=== PATIENT | female | born 1940 | race Caucasian/White ===

== ENCOUNTER 2016-10-05 06:54 | Emergency (ER) | payer OTHER ==
--- NOTE | 2016-10-05 08:09 | DIAGNOSTIC IMAGING REPORT ---
PROCEDURE: XR CHEST 1 VIEW INDICATION: SHORTNESS OF BREATH TECHNIQUE: Single view chest. 07:34 hours COMPARISON: None. FINDINGS: The heart is moderately enlarged. A dual lead pacemaker is present. Median sternotomy changes with sternal wire fractures are seen. Prior CABG. Central vessels are indistinct and enlarged. The interstitial markings are diffusely thickened. Bilateral perihilar alveolar opacities are present. More confluence towards the lung bases. Small bilateral pleural effusions, left greater than right. Intact osseous structures. IMPRESSION: 1. Findings most likely suggests CHF with alveolar edema. An underlying infectious process cannot be entirely excluded. 2. Prior CABG and pacemaker placement.
--- NOTE | 2016-10-05 10:17 | ED ORDER SUMMARY ---
..... Patient: JOEY MIRELES OrderSheet [facility] VisitID: [id number] [place] [address] 76y, F Registration Date/Time: 10/05/2016 ORDER SHEET Weight: 67 kg (measured) Allergies: Vicodin GENERAL ORDERS: Chest 1V Urgent (07:07 10/05/2016 John Paul CASTRO) (Ack 7:09 PWeilorenzo ER Tech1) (8:00 LAbe R.N.) Animal Breeder (Continuous) (07:07 10/05/2016 John Paul CASTRO) (7:26 LAbe R.N.) CBC w Diff Urgent (07:07 10/05/2016 John Paul CASTRO) (Ack 7:09 PWeilorenzo ER Tech1) (9:08 LAbe R.N.) CMP Urgent (07:07 10/05/2016 John Paul CASTRO) (Ack 7:09 Emir ER Tech1) (9:08 LAbe R.N.) UA-Culture if indicated Urgent (07:07 10/05/2016 John Paul CASTRO) (Ack 7:09 Emir Saah) (9:08 LAbe R.N.) PT with INR Urgent (07:07 10/05/2016 John Paul CASTRO) (Ack 7:09 Emir ER Tech1) (9:08 LAbe R.N.) PTT Urgent (07:07 10/05/2016 John Paul CASTRO) (Ack 7:09 Emir Lewis1) (9:08 LAbe R.N.) Amylase Urgent (07:07 10/05/2016 John Paul CASTRO) (Ack 7:09 Emir ZEPEDA Tech1) (9:08 LAbe R.N.) Lipase Urgent (07:07 10/05/2016 John Paul CASTRO) (Ack 7:09 Emir Saha) (9:08 LAbe R.N.) CPK Urgent (07:07 10/05/2016 John Paul CASTRO) (Ack 7:09 Emir ER Yifan) (9:08 LAbe R.N.) BNP Urgent (07:07 10/05/2016 John Paul CASTRO) (Ack 7:09 NIDHIeilorenzo ER Tech1) (9:08 LAbe R.N.) Oxygen (2 L/min) (NC) (07:07 10/05/2016 John Paul CASTRO) (7:26 LAbe R.N.) Pulse oximeter (07:07 10/05/2016 John Paul CASTRO) (7:26 LAbe R.N.) EKG - ER Stat (07:07 10/05/2016 John Paul CASTRO) (Ack 7:09 PWeiler ER Tech1) (7:16 PWeiler ER Tech1) ABG (G) Urgent (09:29 10/05/2016 PWeilorenzo ER Tech1 verbal order read back to John Paul CASTRO) (Ack 9:31 PWeiler ER Tech1) (10:24 PWeiler ER Tech1) MEDICATION ORDERS: Levophed Drip IV : 0.5-12 mcg/min (NOW); Stat (08:05 10/05/2016 Lamin Echols verbal order read back to John Paul CASTRO) (8:22 LAbe R.N.) Levophed Drip IV : 0.1-0.5 mcg/kg/min (HIGH ALERT MEDICATION, NOW); Urgent (08:07 10/05/2016 John Paul CASTRO) IV FLUIDS: Lasix IV 40 mg (NOW) (07:07 10/05/2016 John Paul CASTRO) (Ack 7:19 LAbe R.N.) (7:25 LAbe R.N.) IV Saline Lock (07:07 10/05/2016 John Paul CASTRO) (Ack 7:19 LAbe R.N.) (7:59 LAbe R.N.) Propofol Drip IV : initial bolus none, then 30 mg/kg/min (NOW, TITRATE); Damián (10:36 10/05/2016 Rubi Echols verbal order read back to John Paul CASTRO) (11:14 LAbe R.N.) Anectine IV 1 mg/kg (HIGH ALERT MEDICATION, NOW) (10:42 10/05/2016 Rubi Echols verbal order read back to John Paul CASTRO) (10:47 LAbe R.N.) Anectine IV 70 mg (HIGH ALERT MEDICATION, NOW) (10:43 10/05/2016 Rubi Echols verbal order read back to John Paul CASTRO) (10:45 Milton Maier.N.) Anectine IV 70 mg (HIGH ALERT MEDICATION, NOW) (10:43 10/05/2016 Rubi Echols verbal order read back to John Paul CASTRO) (Cancelled: Duplicate Order11:12 Milton Maier.NHubert) Etomidate IV 20 mg (HIGH ALERT MEDICATION, NOW) (10:44 10/05/2016 Rubi Echols verbal order read back to John Paul CASTRO) (10:50 Milton Maier.N.) Etomidate IV 3 mg (HIGH ALERT MEDICATION, NOW) (10:45 10/05/2016 Rubi Echols verbal order read back to John Paul CASTRO) (10:51 Milton Maier.N.) Vasopressin IV 0.3 units/kg (HIGH ALERT MEDICATION, NOW) (10:50 10/05/2016 Rubi Echols verbal order read back to John Paul CASTRO) (Cancelled: Wrong Order10:56 Rubi Maier.Avinash) Vasopressin IV 0.03 units/kg (HIGH ALERT MEDICATION, NOW) (10:57 10/05/2016 Rubi Echols verbal order read back to John Paul CASTRO) (11:11 Milton Maier.Avinash) ORDER SHEET NOTES: [Electronically signed by Miky Calle MD (11:11 10/05/2016)] [Electronically signed by Lisa Albert R.N. (11:35 10/05/2016)] [Electronically locked/signed by Lisa Albert R.N. (11:35 10/05/2016)]
--- NOTE | 2016-10-05 10:17 | ED NURSING NOTES ---
Clinical Report - Nurses [facility] [address] [place] [address] 10/05/2016 6:58 Patient: JOEY MIRELES TRIAGE Triage time 06:56. Acuity: LEVEL 2. Chief Complaint: SHORTNESS OF BREATH, DIFFICULTY BREATHING and WHEEZING. 07:12 10/05/16. Alert. No acute distress. SEPSIS SCREEN: Sepsis Screen. Negative (no infection suspected/documented). SHIRA COMA SCORE: [place] Coma Scale: 15- eyes open spontaneously (4); best verbal response- oriented x 4 (5); best motor response- obeys commands (6). --07:12 Christine Bedolla R.N. 07:01 10/05/16. BP: 99/67. HR: 89. RR: 19. O2 saturation: 95%. Temp: 97.9 F. Pain level now: 0/10. --07:12 Christine Bedolla R.N. 07:00. --10:54 Lisa Albert R.N. Weight: 67 kg measured. Height/Length: 62 inches Per Patient. BMI: 27. --07:00 Lisa Albert R.N. Medications Amiodarone HCL Oral. --07:02 Christine Bedolla R.N. Warfarin Sodium Oral. --07:02 Christine Bedolla R.N. Metoprolol Tartrate Oral. --07:02 Christine Bedolla R.N. Levothyroxine Sodium Oral. --07:03 Christine Bedolla R.N. Pantoprazole Sodium Oral. --07:03 Christine Bedolla R.N. ALPRAZolam Oral. --07:03 Christine Bedolla R.N. Simvastatin Oral. --07:03 Christine Bedolla R.N. Furosemide Oral. --07:03 Christine Bedolla R.N. Vitamin c Oral. --07:04 Christine Bedolla R.N. B-12 Oral. --07:04 Christine Bedolla R.N. Vitamin D Oral. --07:04 Christine Bedolla R.N. Ocuvite Oral. --07:04 Christine Bedolla R.N. Multivitamins Oral. --07:04 Christine Bedolla R.N. Glucosamine Oral. --07:05 Christine Bedolla R.N. Condroitin. --07:05 Christine Bedolla R.N. Iron Oral. --07:05 Christine Bedolla R.N. Allergies Vicodin. --07:07 Christine Bedolla R.N. History Arrived by EMS. Historian: patient. This started today. ( Patient states she had some shortness of breath last night, but woke up this morning "unable to breathe."). She has had a cough and wheezing. Treatment COUNTER TACKER: None. PAST MEDICAL HX: Congestive heart failure. Immunizations: up-to-date. Denies current . SOCIAL HX: Smoker- current status unknown. No alcohol use or drug use. FALL RISK ASSESSMENT: Fall risk assessment completed. No fall risk identified. NUTRITIONAL RISK ASSESSMENT: The nutritional risk assessment revealed no deficiencies. FUNCTIONAL ASSESSMENT: Functional assessment: no impairments noted. LEARNING NEEDS ASSESSMENT: The learning needs assessment revealed no barriers. SKIN INTEGRITY ASSESSMENT: Skin integrity risk assessment completed. No skin integrity risk identified. --07:12 Christine Bedolla R.N. Treatment COUNTER TACKER: ( duo neb and CPAP 7.5 for 10 mins en route). --07:14 Christine Bedolla R.N. SOCIAL HX: ( ALS at getting report from ). --09:53 Lisa Albert R.N. ADDITIONAL SURGERIES: Aortic valve replacement. Cholecystectomy. Knee repair. L kidney removal. Lumpectomy of breast. --07:09 Christine Bedolla R.N. Interventions ID band on patient. To treatment room. --07:12 Christine Bedolla R.N. NURSING PROGRESS NOTES 07:16 10/05/16. Care transferred and report given (to MORELIA Cai and MORELIA Gonzalez). --07:16 Crhistine Bedolla R.N. EKG time: (7:09). EKG was performed by keisha benitez and shown to the ED physician. --07:17 [facility] transferred and report received. --07:19 Lisa Albert R.N. 07:25 10/05/2016 Site #1 started via IV in the left antecubital space with an 20g angiocath (IV placed prior to this RNs arrival). --07:25 Lisa Albert R.N. 07:25 10/05/2016 Lasix IVP 40 mg given. via site #1. --07:25 Lisa Albert R.N. 07:47. ( RT at BS, placing patient on Bipap. O2 sats dropping to low 80% after patient is tiring.). --07:58 Lisa Albert R.N. 07:50 10/05/2016 Site #1 removed upon admission. Catheter intact. Pressure dressing applied (IV was dislodged with patient movement). --08:00 Lisa Albert R.N. 07:50 10/05/2016 Site #2 started via IV in the right wrist with an 20g angiocath, with aseptic technique and good blood return; one attempt. Saline lock flushed with 5 mL saline. --09:02 Lisa Albert R.N. 07:51 10/05/2016 Site #1 relocated to the left wrist with an 20g angiocath, with aseptic technique and good blood return; one attempt. Saline lock flushed with 5 mL saline. --08:01 Lisa Albert R.N. <<STRICKEN ENTRY-- 08:22 10/05/2016 Started 5 mcg of Levophed (Norepinephrine Bitartrate) Drip IV; at 5 mcg/min via site #1 --08:22 Lisa Albert R.N. --END STRIKE>> Correction. --08:25 Lisa Albert R.N. 08:22 10/05/2016 Started 0.5 mcg of Levophed (Norepinephrine Bitartrate) Drip IV; at 0.5 mcg/min via site #1 --08:25 Lisa Albert R.N. 08:23 10/05/2016 Started 1 mcg of Levophed (Norepinephrine Bitartrate) Drip IV; at 1 mcg/min via site #1 --08:23 Lisa Albert R.N. 14 fr cronin catheter placed. Reason for indwelling catheter: patient's decreased level of consciousness. During procedure hand hygiene observed and sterile equipment and aseptic technique used. Return of yellow-colored clear urine; attached to bedside drainage bag positioned below the bladder and secured with tape. She tolerated procedure well. --08:33 Lisa Albert R.N. 08:33 10/05/2016 Started 2 mcg of Levophed (Norepinephrine Bitartrate) Drip IV; at 2 mcg/min via site #1 via IV pump. IV patency established. IV site checked: no pain, redness, or swelling. IV flushed thoroughly pre- and post-medication administration. --08:47 Lisa Albert R.N. 08:39 10/05/2016 Started 3 mcg of Levophed (Norepinephrine Bitartrate) Drip IV; at 3 mcg/min via site #1 --08:44 Lisa Albert R.N. 08:40 10/05/2016 Started 5 mcg of Levophed (Norepinephrine Bitartrate) Drip IV; at 5 mcg/min via site #1 --08:45 Lisa Albert R.N. 08:45 10/05/2016 Started 7 mcg of Levophed (Norepinephrine Bitartrate) Drip IV; at 7 mcg/min via site #1 --08:45 Lisa Albert R.N. 08:22. ( Bagging by RT, preparing to place ET tube). --09:12 Lisa Albert R.N. 08:25. ( ET tube being placed, placement verified by bilateral breath sounds and colorometric device, continue BVM. ET 7.5 placed successfully, secred with velcro straps). --09:36 Lisa Albert R.N. 08:31. ( continue BVM, waiting placement on vent.). --09:37 Lisa Albert R.N. 08:40. ( continue BVM, awaiting Vent). --09:38 Lisa Albert R.N. 08:55. ( 2nd attempt at [facility] by RT, without success). --09:39 Lisa Albert R.N. 09:05. ( MD attempt [facility]). --09:40 Lisa Albert R.N. 07:51 10/05/2016 Site #3 started via IV in the left wrist with an 20g angiocath, with aseptic technique and good blood return; two attempts. Saline lock flushed with 5 mL saline. --11:10 Lisa Albert R.N. 08:22 10/05/2016 Etomidate IVP 20 mg given. via site #2. Allergies verified, confirmed 5 rights and sedative warning given to the patient's family. IV patency established. IV site checked: no pain, redness, or swelling. IV flushed thoroughly pre- and post-medication administration. IVP given by RN. --10:50 Lisa Albert R.N. 08:24 10/05/2016 Anectine IVP 70 mg given. via site #2. Allergies verified and confirmed 5 rights. IV patency established. IV site checked: no pain, redness, or swelling. IV flushed thoroughly pre- and post-medication administration. IVP given by RN. --10:47 Lisa Albert R.N. 08:38 10/05/2016 Anectine IVP 70 mg given. via site #2. Allergies verified and confirmed 5 rights. IV patency established. IV site checked: no pain, redness, or swelling. IV flushed thoroughly pre- and post-medication administration. IVP given by RN. --10:45 Lisa Albert R.N. 08:49 10/05/2016 Etomidate IVP 3 mg given. via site #2. Allergies verified, confirmed 5 rights and sedative warning given to the patient's family. IV patency established. IV site checked: no pain, redness, or swelling. IV flushed thoroughly pre- and post-medication administration. IVP given by RN. --10:51 Lisa Albert R.N. 08:52 10/05/2016 Anectine IVP 70 mg given. via site #2. Allergies verified and confirmed 5 rights. IV patency established. IV site checked: no pain, redness, or swelling. IV flushed thoroughly pre- and post-medication administration. IVP given by RN. --10:48 Lisa Albert R.N. 08:54 10/05/2016 Started 8 mcg of Levophed (Norepinephrine Bitartrate) Drip IV; at 8 mcg/min via site #1 --08:55 Lisa Albert R.N. 09:02 10/05/2016 Started 20 mg of Propofol Drip IV; at 30 mcg/kg/min via site #3 via IV pump. Allergies verified and confirmed 5 rights. IV patency established. IV site checked: no pain, redness, or swelling. IV flushed thoroughly pre- and post-medication administration. --11:14 Lisa Albert R.N. 09:06 10/05/2016 Started 10 mcg of Levophed (Norepinephrine Bitartrate) Drip IV; at 10 mcg/min via site #1 --09:06 Lisa Albert R.N. <<STRICKEN ENTRY-- 09:26 10/05/2016 Vasopressin IVP 0.03 unit given over 1 minute(s) via site #3. Allergies verified and confirmed 5 rights. IV patency established. IV site checked: no pain, redness, or swelling. IV flushed thoroughly pre- and post-medication administration. IVP given by RN. --11:11 Lisa Albert R.N. --END STRIKE>> Change to Details. --11:30 Lisa Albert R.N. <<STRICKEN ENTRY-- 09:46 10/05/2016 Started 20 mg of Propofol Drip IV; at 20 mcg/kg/min via site #3 via IV pump. Allergies verified and confirmed 5 rights. IV patency established. IV site checked: no pain, redness, or swelling. IV flushed thoroughly pre- and post-medication administration. --11:16 Lisa Albert R.N. --END STRIKE>> Change to Details. --11:28 Lisa Albert R.N. 10:00 10/05/16. BP: 91/41. HR: 71. RR: 25. O2 saturation: 100% on ventilator at 7 liters/minute. 10:00 10/05/16. BP: 91/41. HR: 71. RR: 25. O2 saturation: 100%. 09:45 10/05/16. BP: 83/36. HR: 64. RR: 26. O2 saturation: 98%. 09:30 10/05/16. BP: 90/43. HR: 60. RR: 27. 09:15 10/05/16. BP: 67/51. HR: 60. RR: 30. O2 saturation: 95%. 09:00 10/05/16. BP: 93/51. HR: 61. RR: 18. O2 saturation: 96%. 08:45 10/05/16. BP: 87/51. HR: 76. RR: 16. O2 saturation: 100%. 08:30 10/05/16. BP: 75/48. HR: 82. RR: 13. O2 saturation: 98%. 08:15 10/05/16. BP: 86/67. HR: 83. RR: 28. O2 saturation: 100%. 08:00 10/05/16. BP: 82/64. HR: 80. RR: 28. O2 saturation: 100%. 07:30 10/05/16. BP: 147/112. HR: 98. RR: 33. O2 saturation: 86%. 07:01 10/05/16. BP: 99/67. HR: 89. RR: 19. O2 saturation: 95%. Temp: 97.9 F. Pain level now: 0/10. --11:25 Lisa Albert R.N. 09:26 10/05/2016 Vasopressin IVP 0.03 unit given over 1 minute(s) via site #3. Allergies verified and confirmed 5 rights. IV patency established. IV site checked: no pain, redness, or swelling. IV flushed thoroughly pre- and post-medication administration. IVP given by RN (Infusion continued while transferred with flight crew to [place]). --11:30 Lisa Albert R.N. 09:46 10/05/2016 Started 20 mg of Propofol Drip IV; at 20 mcg/kg/min via site #3 via IV pump. Allergies verified and confirmed 5 rights. IV patency established. IV site checked: no pain, redness, or swelling. IV flushed thoroughly pre- and post-medication administration ([employer] disconinued gtt but took medication with them in case of need during flight to [place].). --11:28 Lisa Albert R.N. 10:11 10/05/2016 Levophed Drip IV Continued: at the rate of 10 mcg/min. IV patency established. IV site checked: no pain, redness, or swelling. IV flushed thoroughly. --11:33 Lias Albert R.N. DISPOSITION / DISCHARGE 10:11 10/05/2016 Site #[address] upon transfer; patent, no pain and no signs of infection or infiltration. No blood return present. --10:32 Lisa Albert R.N. 10:11 10/05/2016 Site #[address] upon transfer; patent, no pain and no signs of infection or infiltration. --10:32 Lisa Albert R.N. 10:00 10/05/16. BP: 91/41. HR: 71. RR: 25. O2 saturation: 100% on ventilator at 7 liters/minute. --10:39 Lisa Albert R.N. 10:11. --11:34 Lisa Albert R.N. 11:33 10/05/16. Pain level now 0/10. --11:34 Lisa Albert R.N. 11:34 10/05/16. Pain level now 0/10. --11:34 Lisa Albert R.N. <<STRICKEN ENTRY-- 10:11. --11:34 Lisa Albert R.N. --END STRIKE>> Correction --11:35 Lisa Albert R.N. 10:15. Departure time: 1011. Condition at departure: stable and critical. Transferred to [facility]. Summary of care provided to transport team and transfer facility (1). Transported via helicopter by nurse and transport team with monitor, defibrillator, IV, O2, emergency medications and ambu bag. Report was given to a nurse via a phone call. Report included patient's care, treatment, medications, reviewed medication reconcilliation, and condition (including any recent changes or anticipated changes). All questions were answered. Care was transferred. ( Telephone report given to Yesenia THIBODEAUX at [facility] for ICU bed 303, [address] on transfer). --10:39 Lisa Albert R.N. Locked/Released at 10/05/2016 11:35 by Lisa Albert R.N.
--- NOTE | 2016-10-05 10:17 | ED CLINICAL REPORT ---
Clinical Report - Physicians/Mid Levels [facility] [address] [place] [address] 10/05/2016 6:58 Patient: JOEY MIRELES Time Seen: 06:56. Arrived- By ambulance. Historian- patient and EMS personnel. HISTORY OF PRESENT ILLNESS Chief Complaint: DYSPNEA. This started today and is still present. It was abrupt in onset and has been constant. The dyspnea is severe. The patient has had a cough, dyspnea on exertion, orthopnea and anxiety. No sputum production, fever, sweating episodes, wheezing or chills. No chest pain or discomfort or calf pain. The patient has had mild right and left foot swelling (chronically). Similar symptoms previously: Several times. Diagnosis: (CHF). Recent medical care: The patient was seen recently by a health care provider. Seen for similar symptoms. Evaluation/treatment: treatment unknown. Diagnosis: (she was treated for congestive heart failure at [facility]). REVIEW OF SYSTEMS Unobtainable. No chills, fever, sweats, calf pain or palpitations. No abdominal pain, constipation, diarrhea, nausea or vomiting. No urinary problems. She has had mild pedal edema involving the right and left leg (chronically). PAST HISTORY breast cancer - status post lumpectomy, radiation and chemotherapy atrial fibrillation - status post prior ablation without success and subsequent pacemaker placement congestive heart failure renal cancer - status post left nephrectomy. Additional Surgeries: Aortic valve replacement. Cholecystectomy. Knee repair. L kidney removal. Lumpectomy of breast. Medications: Iron Oral. Condroitin. Glucosamine Oral. Multivitamins Oral. Ocuvite Oral. Vitamin D Oral. B-12 Oral. Vitamin c Oral. Furosemide Oral. Simvastatin Oral. ALPRAZolam Oral. Pantoprazole Sodium Oral. Levothyroxine Sodium Oral. Metoprolol Tartrate Oral. Warfarin Sodium Oral. Amiodarone HCL Oral. Allergies: Vicodin. SOCIAL HISTORY Former smoker. No alcohol use or drug use. Residence: [place]. FAMILY HISTORY Unable to obtain family medical history due to patient's distress. ADDITIONAL NOTES The nursing notes have been reviewed. PHYSICAL EXAM Vital Signs: Have been reviewed. Appearance: Alert. Patient in moderate distress. Eyes: Pupils equal, round and reactive to light. ENT: Pharynx normal. Neck: Normal inspection. No jugular venous distention. CVS: Normal heart rate and rhythm. 1/6 systolic murmur. Extra heart sounds: artificial valve sound. Respiratory: Respiratory distress. Fatigue. Accessory muscle use. Prolonged expirations. Decreased air movement. Rales present. Abdomen: Soft and nontender. No organomegaly. Back: Normal inspection. Skin: Skin warm and dry. Normal skin color. Normal skin turgor. Extremities: Bilateral 1+ non-pitting edema of the lower extremities. Extremities exhibit normal ROM. No calf tenderness. LABS, X-RAYS, AND EKG Chest X-ray: (IMPRESSION: 1. Findings most likely suggests CHF with alveolar edema. An underlying infectious process cannot be entirely excluded. 2. Prior CABG and pacemaker placement.). The X-rays were interpreted by the radiologist and contemporaneously by me. Laboratory Tests: UA-Culture if indicated: (LIZ: 10/05/2016 08:00) ( [facility] [place] 10/05/2016 09:12) Final results Test Result Flag Units (Reference) URINE COLOR YELLOW URINE APPEARANCE CLEAR URINE GLUCOSE NEGATIVE (NEGATIVE) URINE BILIRUBIN NEGATIVE (NEGATIVE) URINE KETONE NEGATIVE (NEGATIVE) URINE SPECIFIC GRAVITY 1.020 (1.010-1.030) URINE PH 6.0 (5.0-8.0) URINE PROTEIN 1+ (NEGATIVE) URINE UROBILINOGEN 0.2 EU/dL (0.2-1.0) URINE NITRITE NEGATIVE (NEGATIVE) URINE BLOOD NEGATIVE (NEGATIVE) URINE LEUK ESTERASE NEGATIVE (NEGATIVE) URINE RBC RARE rbc/hpf (0-1) URINE WBC RARE wbc/hpf (0-1) URINE EPITHELIAL CELLS RARE EPI/hpf (0-5) URINE BACTERIA NONE SEEN (NONE SEEN) URINE COMMENT CULT NOT INDICATED 3+ AMORPHOUS CRYSTALS 5-10 HYALINE CASTS/LPFURINE CULTURES ARE SET-UP BASED ON THE FOLLOWING CRITERIA:POSITIVE NITRITEPOSITIVE LEUKOCYTE ESTERASEGREATER THAN 10 WHITE BLOOD CELLSMODERATE (2+) OR GREATER BACTERIA CBC w Diff: (LIZ: 10/05/2016 07:00) ( [facility] [place] 10/05/2016 08:10) Final results Test Result Flag Units (Reference) WHITE BLOOD COUNT 10.7 K/uL (4.5-11.5) RED BLOOD COUNT 3.71 L M/uL (4.00-5.20) HEMOGLOBIN 11.5 L gm/dL (12.0-16.0) HEMATOCRIT 34.5 L % (36.0-46.0) MEAN CELL VOLUME 93 fL (80-100) MEAN CORPUSCULAR HGB 31 pg (26-34) MEAN CORPUSCULAR HGB CONC 33 g/dL (31-37) RED CELL DISTRIBUTION WIDTH 17.8 H % (11.6-14.8) PLATELET COUNT 272 K/uL (150-400) NEUTROPHIL % 79.9 H % (50-75) LYMPH % 11.3 L % (25-40) MONO % 7.4 % (3-14) EOSINOPHIL % 0.9 % (0-4) BASOPHIL % 0.5 % (0-2) PT with INR: (LIZ: 10/05/2016 07:00) ( [facility] 10/05/2016 08:13) Final results Test Result Flag Units (Reference) INR 2.6 H (0.8-1.2) Low Intensity Therapy: INR 1.5-2.0 PT range 18.5-23.1Mod.Intensity Therapy: INR 2.0-3.0 PT range 23.1-31.5High Intensity Therapy: INR 2.5-3.5 PT range 27.4-35.5High Intensity Therapy 2: INR 3.0-4.0 PT range 31.5-39.3 APTT 37 H SECONDS (24-34) BNP: (LIZ: 10/05/2016 07:00) ( [facility] 10/05/2016 08:27) Final results Test Result Flag Units (Reference) B-TYPE NATRIURETIC PEPTIDE 927 H pg/ml (5-100) CMP: (LIZ: 10/05/2016 07:00) ( [facility] 10/05/2016 08:16) Final results Test Result Flag Units (Reference) GLUCOSE 104 mg/dL (70-110) BUN 33 H mg/dL (7-18) CREATININE 1.5 H mg/dL (0.6-1.3) Estimated GFR 35.98 mL/min Estimated GFR- 43.61 mL/min Note: Persistent reduction over 3 months in eGFR<60 mL/min/1.73 m2 defines CKD. Patients with eGFR values>=60 mL/min/1.73 m2 may also have CKD if evidence ofpersistent proteinuria. Additional information may be foundat www.kidney.org. SODIUM 147 H mmol/L (136-145) POTASSIUM 4.3 mmol/L (3.5-5.1) CHLORIDE 112 H mmol/L (98-107) CARBON DIOXIDE 28 mmol/L (21-32) CALCIUM 8.9 mg/dL (8.5-10.1) TOTAL PROTEIN 7.2 g/dL (6.4-8.2) ALBUMIN 3.7 g/dL (3.3-5.0) BILIRUBIN, TOTAL 0.9 mg/dL (0.0-1.0) ALKALINE PHOSPHATASE 103 U/L (46-116) AST (SGOT) 84 H U/L (15-37) ALT (SGPT) 66 U/L (12-78) LIPASE 180 U/L (73-393) AMYLASE 73 U/L (25-115) CPK 52 U/L (24-260) ABG: (LIZ: 10/05/2016 09:29) ( [facility] 10/05/2016 09:43) IP Test Result Flag Units (Reference) ARTERIAL BLOOD GAS pH 7.23 *L (7.35-7.45) ABG PCO2 43.3 mmHg (35-45) ABG PO2 82.2 H mmHg (60.0-80.0) ABG BASE EXCESS -8.7 *L mmol/L (-6.0--6.0) ABG HCO3 18.2 L mmol/L (20.0-26.0) ABG TCO2 19.5 L mmol/L (24.0-30.0) ABG [id number] 581.0 H mmHg (7.0-14.0) *NOTE: Normal rangeis based on aFIO2 of 21% ABG SAT O2 92.0 L % (95.1-100.0) ABG TOTAL HEMOGLOBIN 12.8 g/dL (12.0-16.0) ABG O2 HEMOGLOBIN 90.7 L % (95.0-100.0) ABG CARBOXYHEMOGLOBIN 1.0 % (0.5-1.5) ABG METHEMOGLOBIN 0.4 % (0.4-1.5) ABG RHEMOGLOBIN 7.9 % . PROGRESS AND PROCEDURES Intubation: Time-out completed immediately before the procedure. Intubated with 7.5 cuffed endotracheal tube. Head placed in neutral position. Preoxygenated. Hyperventilated. Suction was available. Intubated via orotracheal route. Administered induction agent- etomidate and neuromuscular blocking agent- succinylcholine. No complications. Placement confirmed by direct visualization and equal rise and fall of chest wall. Tube secured with device and connected to ventilator. Given propofol post-intubation. Tube marked at teeth (20 cm). Technique: video assisted. Procedure successful; one attempt. Critical care performed (130 minutes). Time includes: direct patient care, patient reassessment, coordination of patient care, interpretation of data (laboratory data, pulse oximetry and arterial blood gases), review of patient's medical records, medical consultation, family consultation regarding treatment decisions and documentation of patient care. Procedures included in critical care time: ventilator management. Procedures excluded from critical care time: intubation. Consult obtained from optic fibre drawer. Dr Cordoba at [facility]. Case discussed. Phone consult only. Will see patient in the hospital. Patient/family counseled. Old medical records ordered. Old records unavailable. Disposition: Benefits, risks and alternatives to transfer explained to family. Transferred to [facility]. CLINICAL IMPRESSION Acute respiratory failure with hypoxemia and hypercapnia. Congestive heart failure. Hypotension. Renal insufficiency. (Electronically signed by Miky Calle MD 10/05/2016 11:11)
--- NOTE | 2016-10-05 10:17 | ED NURSING NOTES ---
Clinical Report - Nurses [facility] [address] [place] [address] 10/05/2016 6:58 Patient: JOEY MIRELES TRIAGE Triage time 06:56. Acuity: LEVEL 2. Chief Complaint: SHORTNESS OF BREATH, DIFFICULTY BREATHING and WHEEZING. 07:12 10/05/16. Alert. No acute distress. SEPSIS SCREEN: Sepsis Screen. Negative (no infection suspected/documented). SHIRA COMA SCORE: [place] Coma Scale: 15- eyes open spontaneously (4); best verbal response- oriented x 4 (5); best motor response- obeys commands (6). --07:12 Christine Bedolla R.N. 07:01 10/05/16. BP: 99/67. HR: 89. RR: 19. O2 saturation: 95%. Temp: 97.9 F. Pain level now: 0/10. --07:12 Christine Bedolla R.N. 07:00. --10:54 Lisa Albert R.N. Weight: 67 kg measured. Height/Length: 62 inches Per Patient. BMI: 27. --07:00 Lisa Albert R.N. Medications Amiodarone HCL Oral. --07:02 Christine Bedolla R.N. Warfarin Sodium Oral. --07:02 Christine Bedolla R.N. Metoprolol Tartrate Oral. --07:02 Christine Bedolla R.N. Levothyroxine Sodium Oral. --07:03 Christine Bedolla R.N. Pantoprazole Sodium Oral. --07:03 Christine Bedolla R.N. ALPRAZolam Oral. --07:03 Christine Bedolla R.N. Simvastatin Oral. --07:03 Christine Bedolla R.N. Furosemide Oral. --07:03 Christine Bedolla R.N. Vitamin c Oral. --07:04 Christine Bedolla R.N. B-12 Oral. --07:04 Christine Bedolla R.N. Vitamin D Oral. --07:04 Christine Bedolla R.N. Ocuvite Oral. --07:04 Christine Bedolla R.N. Multivitamins Oral. --07:04 Christine Bedolla R.N. Glucosamine Oral. --07:05 Christine Bedolla R.N. Condroitin. --07:05 Christine Bedolla R.N. Iron Oral. --07:05 Christine Bedolla R.N. Allergies Vicodin. --07:07 Christine Bedolla R.N. History Arrived by EMS. Historian: patient. This started today. ( Patient states she had some shortness of breath last night, but woke up this morning "unable to breathe."). She has had a cough and wheezing. Treatment REAL ESTATE SERVICES COORDINATOR: None. PAST MEDICAL HX: Congestive heart failure. Immunizations: up-to-date. Denies current . SOCIAL HX: Smoker- current status unknown. No alcohol use or drug use. FALL RISK ASSESSMENT: Fall risk assessment completed. No fall risk identified. NUTRITIONAL RISK ASSESSMENT: The nutritional risk assessment revealed no deficiencies. FUNCTIONAL ASSESSMENT: Functional assessment: no impairments noted. LEARNING NEEDS ASSESSMENT: The learning needs assessment revealed no barriers. SKIN INTEGRITY ASSESSMENT: Skin integrity risk assessment completed. No skin integrity risk identified. --07:12 Christine Bedolla R.N. Treatment REAL ESTATE SERVICES COORDINATOR: ( duo neb and CPAP 7.5 for 10 mins en route). --07:14 Christine Bedolla R.N. SOCIAL HX: ( ALS at getting report from ). --09:53 Lisa Albert R.N. ADDITIONAL SURGERIES: Aortic valve replacement. Cholecystectomy. Knee repair. L kidney removal. Lumpectomy of breast. --07:09 Christine Bedolla R.N. Interventions ID band on patient. To treatment room. --07:12 Christine Bedolla R.N. NURSING PROGRESS NOTES 07:16 10/05/16. Care transferred and report given (to MORELIA Cai and MORELIA Gonzalez). --07:16 Christine Bedolla R.N. EKG time: (7:09). EKG was performed by keisha benitez and shown to the ED physician. --07:[address] [facility] transferred and report received. --07:19 Lisa Albert R.N. 07:25 10/05/2016 Site #1 started via IV in the left antecubital space with an 20g angiocath (IV placed prior to this RNs arrival). --07:25 Lisa Albert R.N. 07:25 10/05/2016 Lasix IVP 40 mg given. via site #1. --07:25 Lisa Albert R.N. 07:47. ( RT at BS, placing patient on Bipap. O2 sats dropping to low 80% after patient is tiring.). --07:58 Lisa Albert R.N. 07:50 10/05/2016 Site #1 removed upon admission. Catheter intact. Pressure dressing applied (IV was dislodged with patient movement). --08:00 Lisa Albert R.N. 07:50 10/05/2016 Site #2 started via IV in the right wrist with an 20g angiocath, with aseptic technique and good blood return; one attempt. Saline lock flushed with 5 mL saline. --09:02 Lisa Albert R.N. 07:51 10/05/2016 Site #1 relocated to the left wrist with an 20g angiocath, with aseptic technique and good blood return; one attempt. Saline lock flushed with 5 mL saline. --08:01 Lisa Albert R.N. <<STRICKEN ENTRY-- 08:22 10/05/2016 Started 5 mcg of Levophed (Norepinephrine Bitartrate) Drip IV; at 5 mcg/min via site #1 --08:22 Lisa Albert R.N. --END STRIKE>> Correction. --08:25 Lisa Albert R.N. 08:22 10/05/2016 Started 0.5 mcg of Levophed (Norepinephrine Bitartrate) Drip IV; at 0.5 mcg/min via site #1 --08:25 Lisa Albert R.N. 08:23 10/05/2016 Started 1 mcg of Levophed (Norepinephrine Bitartrate) Drip IV; at 1 mcg/min via site #1 --08:23 Lisa Albert R.N. 14 fr cronin catheter placed. Reason for indwelling catheter: patient's decreased level of consciousness. During procedure hand hygiene observed and sterile equipment and aseptic technique used. Return of yellow-colored clear urine; attached to bedside drainage bag positioned below the bladder and secured with tape. She tolerated procedure well. --08:33 Lisa Albert R.N. 08:33 10/05/2016 Started 2 mcg of Levophed (Norepinephrine Bitartrate) Drip IV; at 2 mcg/min via site #1 via IV pump. IV patency established. IV site checked: no pain, redness, or swelling. IV flushed thoroughly pre- and post-medication administration. --08:47 Lisa Albert R.N. 08:39 10/05/2016 Started 3 mcg of Levophed (Norepinephrine Bitartrate) Drip IV; at 3 mcg/min via site #1 --08:44 Lisa Albert R.N. 08:40 10/05/2016 Started 5 mcg of Levophed (Norepinephrine Bitartrate) Drip IV; at 5 mcg/min via site #1 --08:45 Lisa Albert R.N. 08:45 10/05/2016 Started 7 mcg of Levophed (Norepinephrine Bitartrate) Drip IV; at 7 mcg/min via site #1 --08:45 Lisa Albert R.N. 08:22. ( Bagging by RT, preparing to place ET tube). --09:12 Lisa Albert R.N. 08:25. ( ET tube being placed, placement verified by bilateral breath sounds and colorometric device, continue BVM. ET 7.5 placed successfully, secred with velcro straps). --09:36 Lisa Albert R.N. 08:31. ( continue BVM, waiting placement on vent.). --09:37 Lisa Albert R.N. 08:40. ( continue BVM, awaiting Vent). --09:38 Lisa Albert R.N. 08:55. ( 2nd attempt at [facility] by RT, without success). --09:39 Lisa Albert R.N. 09:05. ( MD attempt [facility]). --09:40 Lisa Albert R.N. 07:51 10/05/2016 Site #3 started via IV in the left wrist with an 20g angiocath, with aseptic technique and good blood return; two attempts. Saline lock flushed with 5 mL saline. --11:10 iLsa Albert R.N. 08:22 10/05/2016 Etomidate IVP 20 mg given. via site #2. Allergies verified, confirmed 5 rights and sedative warning given to the patient's family. IV patency established. IV site checked: no pain, redness, or swelling. IV flushed thoroughly pre- and post-medication administration. IVP given by RN. --10:50 Lisa Albert R.N. 08:24 10/05/2016 Anectine IVP 70 mg given. via site #2. Allergies verified and confirmed 5 rights. IV patency established. IV site checked: no pain, redness, or swelling. IV flushed thoroughly pre- and post-medication administration. IVP given by RN. --10:47 Lisa Albert R.N. 08:38 10/05/2016 Anectine IVP 70 mg given. via site #2. Allergies verified and confirmed 5 rights. IV patency established. IV site checked: no pain, redness, or swelling. IV flushed thoroughly pre- and post-medication administration. IVP given by RN. --10:45 Lisa Albert R.N. 08:49 10/05/2016 Etomidate IVP 3 mg given. via site #2. Allergies verified, confirmed 5 rights and sedative warning given to the patient's family. IV patency established. IV site checked: no pain, redness, or swelling. IV flushed thoroughly pre- and post-medication administration. IVP given by RN. --10:51 Lisa Albert R.N. 08:52 10/05/2016 Anectine IVP 70 mg given. via site #2. Allergies verified and confirmed 5 rights. IV patency established. IV site checked: no pain, redness, or swelling. IV flushed thoroughly pre- and post-medication administration. IVP given by RN. --10:48 Lisa Albert R.N. 08:54 10/05/2016 Started 8 mcg of Levophed (Norepinephrine Bitartrate) Drip IV; at 8 mcg/min via site #1 --08:55 Lisa Albert R.N. 09:02 10/05/2016 Started 20 mg of Propofol Drip IV; at 30 mcg/kg/min via site #3 via IV pump. Allergies verified and confirmed 5 rights. IV patency established. IV site checked: no pain, redness, or swelling. IV flushed thoroughly pre- and post-medication administration. --11:14 Lisa Albert R.N. 09:06 10/05/2016 Started 10 mcg of Levophed (Norepinephrine Bitartrate) Drip IV; at 10 mcg/min via site #1 --09:06 Lisa Albert R.N. <<STRICKEN ENTRY-- 09:26 10/05/2016 Vasopressin IVP 0.03 unit given over 1 minute(s) via site #3. Allergies verified and confirmed 5 rights. IV patency established. IV site checked: no pain, redness, or swelling. IV flushed thoroughly pre- and post-medication administration. IVP given by RN. --11:11 Lisa Albert R.N. --END STRIKE>> Change to Details. --11:30 Lisa Albert R.N. <<STRICKEN ENTRY-- 09:46 10/05/2016 Started 20 mg of Propofol Drip IV; at 20 mcg/kg/min via site #3 via IV pump. Allergies verified and confirmed 5 rights. IV patency established. IV site checked: no pain, redness, or swelling. IV flushed thoroughly pre- and post-medication administration. --11:16 Lisa Albert R.N. --END STRIKE>> Change to Details. --11:28 Lisa Albert R.N. 10:00 10/05/16. BP: 91/41. HR: 71. RR: 25. O2 saturation: 100% on ventilator at 7 liters/minute. 10:00 10/05/16. BP: 91/41. HR: 71. RR: 25. O2 saturation: 100%. 09:45 10/05/16. BP: 83/36. HR: 64. RR: 26. O2 saturation: 98%. 09:30 10/05/16. BP: 90/43. HR: 60. RR: 27. 09:15 10/05/16. BP: 67/51. HR: 60. RR: 30. O2 saturation: 95%. 09:00 10/05/16. BP: 93/51. HR: 61. RR: 18. O2 saturation: 96%. 08:45 10/05/16. BP: 87/51. HR: 76. RR: 16. O2 saturation: 100%. 08:30 10/05/16. BP: 75/48. HR: 82. RR: 13. O2 saturation: 98%. 08:15 10/05/16. BP: 86/67. HR: 83. RR: 28. O2 saturation: 100%. 08:00 10/05/16. BP: 82/64. HR: 80. RR: 28. O2 saturation: 100%. 07:30 10/05/16. BP: 147/112. HR: 98. RR: 33. O2 saturation: 86%. 07:01 10/05/16. BP: 99/67. HR: 89. RR: 19. O2 saturation: 95%. Temp: 97.9 F. Pain level now: 0/10. --11:25 Lisa Albert R.N. 09:26 10/05/2016 Vasopressin IVP 0.03 unit given over 1 minute(s) via site #3. Allergies verified and confirmed 5 rights. IV patency established. IV site checked: no pain, redness, or swelling. IV flushed thoroughly pre- and post-medication administration. IVP given by RN (Infusion continued while transferred with flight crew to [place]). --11:30 Lisa Albert R.N. 09:46 10/05/2016 Started 20 mg of Propofol Drip IV; at 20 mcg/kg/min via site #3 via IV pump. Allergies verified and confirmed 5 rights. IV patency established. IV site checked: no pain, redness, or swelling. IV flushed thoroughly pre- and post-medication administration ([employer] disconinued gtt but took medication with them in case of need during flight to [place].). --11:28 Lisa Albert R.N. 10:11 10/05/2016 Levophed Drip IV Continued: at the rate of 10 mcg/min. IV patency established. IV site checked: no pain, redness, or swelling. IV flushed thoroughly. --11:33 Lisa Albert R.N. DISPOSITION / DISCHARGE 10:11 10/05/2016 Site #[address] upon transfer; patent, no pain and no signs of infection or infiltration. No blood return present. --10:32 Lisa Albert R.N. 10:11 10/05/2016 Site #[address] upon transfer; patent, no pain and no signs of infection or infiltration. --10:32 Lisa Albert R.N. 10:00 10/05/16. BP: 91/41. HR: 71. RR: 25. O2 saturation: 100% on ventilator at 7 liters/minute. --10:39 Lisa Albert R.N. 10:11. --11:34 Lisa Albert R.N. 11:33 10/05/16. Pain level now 0/10. --11:34 Lisa Albert R.N. 11:34 10/05/16. Pain level now 0/10. --11:34 Lisa Albert R.N. <<STRICKEN ENTRY-- 10:11. --11:34 Lisa Albert R.N. --END STRIKE>> Correction --11:35 Lisa Albert R.N. 10:15. Departure time: 1011. Condition at departure: stable and critical. Transferred to [facility]. Summary of care provided to transport team and transfer facility (1). Transported via helicopter by nurse and transport team with monitor, defibrillator, IV, O2, emergency medications and ambu bag. Report was given to a nurse via a phone call. Report included patient's care, treatment, medications, reviewed medication reconcilliation, and condition (including any recent changes or anticipated changes). All questions were answered. Care was transferred. ( Telephone report given to Yesenia THIBODEAUX at [facility] for ICU bed 303, [address] on transfer). --10:39 Lisa Albert R.N. Locked/Released at 10/05/2016 11:35 by Lisa Albert R.N.
--- NOTE | 2016-10-05 10:17 | ED ORDER SUMMARY ---
..... Patient: JOEY MIRELES OrderSheet [facility] VisitID: [id number] [place] [address] 76y, F Registration Date/Time: 10/05/2016 ORDER SHEET Weight: 67 kg (measured) Allergies: Vicodin GENERAL ORDERS: Chest 1V Urgent (07:07 10/05/2016 John Paul CASTRO) (Ack 7:09 PWeilorenzo ER Tech1) (8:00 LAbe R.N.) Forming Process Worker (Continuous) (07:07 10/05/2016 John Paul CASTRO) (7:26 LAbe R.N.) CBC w Diff Urgent (07:07 10/05/2016 John Paul CASTRO) (Ack 7:09 PWeilorenzo ER Tech1) (9:08 LAbe R.N.) CMP Urgent (07:07 10/05/2016 John Paul CASTRO) (Ack 7:09 Emir ER Tech1) (9:08 LAbe R.N.) UA-Culture if indicated Urgent (07:07 10/05/2016 John Paul CASTRO) (Ack 7:09 Emir Saha) (9:08 LAbe R.N.) PT with INR Urgent (07:07 10/05/2016 John Paul CASTRO) (Ack 7:09 Emir ER Tech1) (9:08 LAbe R.N.) PTT Urgent (07:07 10/05/2016 John Paul CASTRO) (Ack 7:09 Emir Lewis1) (9:08 LAbe R.N.) Amylase Urgent (07:07 10/05/2016 John Paul CASTRO) (Ack 7:09 Emir ZEPEDA Tech1) (9:08 LAbe R.N.) Lipase Urgent (07:07 10/05/2016 John Paul CASTRO) (Ack 7:09 Emir Saha) (9:08 LAbe R.N.) CPK Urgent (07:07 10/05/2016 John Paul CASTRO) (Ack 7:09 Emir ER Yifan) (9:08 LAbe R.N.) BNP Urgent (07:07 10/05/2016 John Paul CASTRO) (Ack 7:09 NIDHIeilorenzo ER Tech1) (9:08 LAbe R.N.) Oxygen (2 L/min) (NC) (07:07 10/05/2016 John Paul CASTRO) (7:26 LAbe R.N.) Pulse oximeter (07:07 10/05/2016 John Paul CASTRO) (7:26 LAbe R.N.) EKG - ER Stat (07:07 10/05/2016 John Paul CASTRO) (Ack 7:09 PWeiler ER Tech1) (7:16 PWeiler ER Tech1) ABG (G) Urgent (09:29 10/05/2016 PWeilorenzo ER Tech1 verbal order read back to John Paul CASTRO) (Ack 9:31 PWeiler ER Tech1) (10:24 PWeiler ER Tech1) MEDICATION ORDERS: Levophed Drip IV : 0.5-12 mcg/min (NOW); Stat (08:05 10/05/2016 Lamin Echols verbal order read back to John Paul CASTRO) (8:22 LAbe R.N.) Levophed Drip IV : 0.1-0.5 mcg/kg/min (HIGH ALERT MEDICATION, NOW); Urgent (08:07 10/05/2016 John Paul CASTRO) IV FLUIDS: Lasix IV 40 mg (NOW) (07:07 10/05/2016 John Paul CASTRO) (Ack 7:19 LAbe R.N.) (7:25 LAbe R.N.) IV Saline Lock (07:07 10/05/2016 John Paul CASTRO) (Ack 7:19 LAbe R.N.) (7:59 LAbe R.N.) Propofol Drip IV : initial bolus none, then 30 mg/kg/min (NOW, TITRATE); Damián (10:36 10/05/2016 Rubi Echols verbal order read back to John Paul CASTRO) (11:14 LAbe R.N.) Anectine IV 1 mg/kg (HIGH ALERT MEDICATION, NOW) (10:42 10/05/2016 Rubi Echols verbal order read back to John Paul CASTRO) (10:47 LAbe R.N.) Anectine IV 70 mg (HIGH ALERT MEDICATION, NOW) (10:43 10/05/2016 Rubi Echols verbal order read back to John Paul CASTRO) (10:45 Milton Maier.N.) Anectine IV 70 mg (HIGH ALERT MEDICATION, NOW) (10:43 10/05/2016 Rubi Echols verbal order read back to John Paul CASTRO) (Cancelled: Duplicate Order11:12 Milton Maier.NHubert) Etomidate IV 20 mg (HIGH ALERT MEDICATION, NOW) (10:44 10/05/2016 Rubi Echols verbal order read back to John Paul CASTRO) (10:50 Milton Maier.N.) Etomidate IV 3 mg (HIGH ALERT MEDICATION, NOW) (10:45 10/05/2016 Rubi Echols verbal order read back to John Paul CASTRO) (10:51 Milton Maier.N.) Vasopressin IV 0.3 units/kg (HIGH ALERT MEDICATION, NOW) (10:50 10/05/2016 Rubi Echols verbal order read back to John Paul CASTRO) (Cancelled: Wrong Order10:56 Rubi Maier.Avinash) Vasopressin IV 0.03 units/kg (HIGH ALERT MEDICATION, NOW) (10:57 10/05/2016 Rubi Echols verbal order read back to John Paul CASTRO) (11:11 Milton Maier.Avinash) ORDER SHEET NOTES: [Electronically signed by Miky Calle MD (11:11 10/05/2016)] [Electronically signed by Lisa Albert R.N. (11:35 10/05/2016)] [Electronically locked/signed by Lisa Albert R.N. (11:35 10/05/2016)]
--- NOTE | 2016-10-05 10:17 | ED CLINICAL REPORT ---
Clinical Report - Physicians/Mid Levels [facility] [address] [place] [address] 10/05/2016 6:58 Patient: JOEY MIRELES Time Seen: 06:56. Arrived- By ambulance. Historian- patient and EMS personnel. HISTORY OF PRESENT ILLNESS Chief Complaint: DYSPNEA. This started today and is still present. It was abrupt in onset and has been constant. The dyspnea is severe. The patient has had a cough, dyspnea on exertion, orthopnea and anxiety. No sputum production, fever, sweating episodes, wheezing or chills. No chest pain or discomfort or calf pain. The patient has had mild right and left foot swelling (chronically). Similar symptoms previously: Several times. Diagnosis: (CHF). Recent medical care: The patient was seen recently by a health care provider. Seen for similar symptoms. Evaluation/treatment: treatment unknown. Diagnosis: (she was treated for congestive heart failure at [facility]). REVIEW OF SYSTEMS Unobtainable. No chills, fever, sweats, calf pain or palpitations. No abdominal pain, constipation, diarrhea, nausea or vomiting. No urinary problems. She has had mild pedal edema involving the right and left leg (chronically). PAST HISTORY breast cancer - status post lumpectomy, radiation and chemotherapy atrial fibrillation - status post prior ablation without success and subsequent pacemaker placement congestive heart failure renal cancer - status post left nephrectomy. Additional Surgeries: Aortic valve replacement. Cholecystectomy. Knee repair. L kidney removal. Lumpectomy of breast. Medications: Iron Oral. Condroitin. Glucosamine Oral. Multivitamins Oral. Ocuvite Oral. Vitamin D Oral. B-12 Oral. Vitamin c Oral. Furosemide Oral. Simvastatin Oral. ALPRAZolam Oral. Pantoprazole Sodium Oral. Levothyroxine Sodium Oral. Metoprolol Tartrate Oral. Warfarin Sodium Oral. Amiodarone HCL Oral. Allergies: Vicodin. SOCIAL HISTORY Former smoker. No alcohol use or drug use. Residence: [place]. FAMILY HISTORY Unable to obtain family medical history due to patient's distress. ADDITIONAL NOTES The nursing notes have been reviewed. PHYSICAL EXAM Vital Signs: Have been reviewed. Appearance: Alert. Patient in moderate distress. Eyes: Pupils equal, round and reactive to light. ENT: Pharynx normal. Neck: Normal inspection. No jugular venous distention. CVS: Normal heart rate and rhythm. 1/6 systolic murmur. Extra heart sounds: artificial valve sound. Respiratory: Respiratory distress. Fatigue. Accessory muscle use. Prolonged expirations. Decreased air movement. Rales present. Abdomen: Soft and nontender. No organomegaly. Back: Normal inspection. Skin: Skin warm and dry. Normal skin color. Normal skin turgor. Extremities: Bilateral 1+ non-pitting edema of the lower extremities. Extremities exhibit normal ROM. No calf tenderness. LABS, X-RAYS, AND EKG Chest X-ray: (IMPRESSION: 1. Findings most likely suggests CHF with alveolar edema. An underlying infectious process cannot be entirely excluded. 2. Prior CABG and pacemaker placement.). The X-rays were interpreted by the radiologist and contemporaneously by me. Laboratory Tests: UA-Culture if indicated: (LIZ: 10/05/2016 08:00) [facility] Final results Test Result Flag Units (Reference) URINE COLOR YELLOW URINE APPEARANCE CLEAR URINE GLUCOSE NEGATIVE (NEGATIVE) URINE BILIRUBIN NEGATIVE (NEGATIVE) URINE KETONE NEGATIVE (NEGATIVE) URINE SPECIFIC GRAVITY 1.020 (1.010-1.030) URINE PH 6.0 (5.0-8.0) URINE PROTEIN 1+ (NEGATIVE) URINE UROBILINOGEN 0.2 EU/dL (0.2-1.0) URINE NITRITE NEGATIVE (NEGATIVE) URINE BLOOD NEGATIVE (NEGATIVE) URINE LEUK ESTERASE NEGATIVE (NEGATIVE) URINE RBC RARE rbc/hpf (0-1) URINE WBC RARE wbc/hpf (0-1) URINE EPITHELIAL CELLS RARE EPI/hpf (0-5) URINE BACTERIA NONE SEEN (NONE SEEN) URINE COMMENT CULT NOT INDICATED 3+ AMORPHOUS CRYSTALS 5-10 HYALINE CASTS/LPFURINE CULTURES ARE SET-UP BASED ON THE FOLLOWING CRITERIA:POSITIVE NITRITEPOSITIVE LEUKOCYTE ESTERASEGREATER THAN 10 WHITE BLOOD CELLSMODERATE (2+) OR GREATER BACTERIA CBC w Diff: (LIZ: 10/05/2016 07:00) ( [facility] 10/05/2016 08:10) Final results Test Result Flag Units (Reference) WHITE BLOOD COUNT 10.7 K/uL (4.5-11.5) RED BLOOD COUNT 3.71 L M/uL (4.00-5.20) HEMOGLOBIN 11.5 L gm/dL (12.0-16.0) HEMATOCRIT 34.5 L % (36.0-46.0) MEAN CELL VOLUME 93 fL (80-100) MEAN CORPUSCULAR HGB 31 pg (26-34) MEAN CORPUSCULAR HGB CONC 33 g/dL (31-37) RED CELL DISTRIBUTION WIDTH 17.8 H % (11.6-14.8) PLATELET COUNT 272 K/uL (150-400) NEUTROPHIL % 79.9 H % (50-75) LYMPH % 11.3 L % (25-40) MONO % 7.4 % (3-14) EOSINOPHIL % 0.9 % (0-4) BASOPHIL % 0.5 % (0-2) PT with INR: (LIZ: 10/05/2016 07:00) ( [facility] 10/05/2016 08:13) Final results Test Result Flag Units (Reference) INR 2.6 H (0.8-1.2) Low Intensity Therapy: INR 1.5-2.0 PT range 18.5-23.1Mod.Intensity Therapy: INR 2.0-3.0 PT range 23.1-31.5High Intensity Therapy: INR 2.5-3.5 PT range 27.4-35.5High Intensity Therapy 2: INR 3.0-4.0 PT range 31.5-39.3 APTT 37 H SECONDS (24-34) BNP: (LIZ: 10/05/2016 07:00) ( [facility] 10/05/2016 08:27) Final results Test Result Flag Units (Reference) B-TYPE NATRIURETIC PEPTIDE 927 H pg/ml (5-100) CMP: (LIZ: 10/05/2016 07:00) ( [facility] 10/05/2016 08:16) Final results Test Result Flag Units (Reference) GLUCOSE 104 mg/dL (70-110) BUN 33 H mg/dL (7-18) CREATININE 1.5 H mg/dL (0.6-1.3) Estimated GFR 35.98 mL/min Estimated GFR- 43.61 mL/min Note: Persistent reduction over 3 months in eGFR<60 mL/min/1.73 m2 defines CKD. Patients with eGFR values>=60 mL/min/1.73 m2 may also have CKD if evidence ofpersistent proteinuria. Additional information may be foundat www.kidney.org. SODIUM 147 H mmol/L (136-145) POTASSIUM 4.3 mmol/L (3.5-5.1) CHLORIDE 112 H mmol/L (98-107) CARBON DIOXIDE 28 mmol/L (21-32) CALCIUM 8.9 mg/dL (8.5-10.1) TOTAL PROTEIN 7.2 g/dL (6.4-8.2) ALBUMIN 3.7 g/dL (3.3-5.0) BILIRUBIN, TOTAL 0.9 mg/dL (0.0-1.0) ALKALINE PHOSPHATASE 103 U/L (46-116) AST (SGOT) 84 H U/L (15-37) ALT (SGPT) 66 U/L (12-78) LIPASE 180 U/L (73-393) AMYLASE 73 U/L (25-115) CPK 52 U/L (24-260) ABG: (LIZ: 10/05/2016 09:29) ( [facility] 10/05/2016 09:43) IP Test Result Flag Units (Reference) ARTERIAL BLOOD GAS pH 7.23 *L (7.35-7.45) ABG PCO2 43.3 mmHg (35-45) ABG PO2 82.2 H mmHg (60.0-80.0) ABG BASE EXCESS -8.7 *L mmol/L (-6.0--6.0) ABG HCO3 18.2 L mmol/L (20.0-26.0) ABG TCO2 19.5 L mmol/L (24.0-30.0) ABG AnFdQ0g 581.0 H mmHg (7.0-14.0) *NOTE: Normal rangeis based on aFIO2 of 21% ABG SAT O2 92.0 L % (95.1-100.0) ABG TOTAL HEMOGLOBIN 12.8 g/dL (12.0-16.0) ABG O2 HEMOGLOBIN 90.7 L % (95.0-100.0) ABG CARBOXYHEMOGLOBIN 1.0 % (0.5-1.5) ABG METHEMOGLOBIN 0.4 % (0.4-1.5) ABG RHEMOGLOBIN 7.9 % . PROGRESS AND PROCEDURES Intubation: Time-out completed immediately before the procedure. Intubated with 7.5 cuffed endotracheal tube. Head placed in neutral position. Preoxygenated. Hyperventilated. Suction was available. Intubated via orotracheal route. Administered induction agent- etomidate and neuromuscular blocking agent- succinylcholine. No complications. Placement confirmed by direct visualization and equal rise and fall of chest wall. Tube secured with device and connected to ventilator. Given propofol post-intubation. Tube marked at teeth (20 cm). Technique: video assisted. Procedure successful; one attempt. Critical care performed (130 minutes). Time includes: direct patient care, patient reassessment, coordination of patient care, interpretation of data (laboratory data, pulse oximetry and arterial blood gases), review of patient's medical records, medical consultation, family consultation regarding treatment decisions and documentation of patient care. Procedures included in critical care time: ventilator management. Procedures excluded from critical care time: intubation. Consult obtained from civil celebrant. Dr Cordoba at [facility]. Case discussed. Phone consult only. Will see patient in the hospital. Patient/family counseled. Old medical records ordered. Old records unavailable. Disposition: Benefits, risks and alternatives to transfer explained to family. Transferred to [facility]. CLINICAL IMPRESSION Acute respiratory failure with hypoxemia and hypercapnia. Congestive heart failure. Hypotension. Renal insufficiency. (Electronically signed by Miky Calle MD 10/05/2016 11:11)
--- NOTE | 2016-10-05 11:35 | ED DISCHARGE INSTRUCTIONS ---
Patient: JOEY MIRELES General Instructions [facility] VisitID: [id number] [address] [place] [address] 76y, F Registration Date/Time: 10/05/2016 Acute respiratory failure with hypoxemia and hypercapnia. Congestive heart failure. Hypotension. Renal insufficiency. (Electronically signed by Miky Calle MD 10/05/2016 11:11)
--- NOTE | 2016-10-05 11:35 | ED MAR SUMMARY ---
..... Medication Administration Record [facility] [address] [place] [address] Patient: JOEY MIRELES Visit ID: [id number] 76y, F Weight: 67.0 kg Height/Length: 62 in BMI: 27 ALLERGIES: Vicodin Given 07:25 10/05/2016 Lisa Albert R.N. Medication Administered: LASIX [IVP], Dose: 40 mg IVP, Site: #1 left AC. Medication Ordered: Lasix IV 40 mg (NOW). Start 08:10/05/2016 Lisa Albert R.N. Medication Administered: LEVOPHED [IV DRIP] (NOREPINEPHRINE BITARTRATE), Dose: 0.5 mcg Drip IV, Rate: 0.5 mcg/min, Site: #1 left wrist. Medication Ordered: Levophed Drip IV : 0.5-12 mcg/min (NOW); Stat. Given 08:10/05/2016 Lisa Albert R.N. Medication Administered: ETOMIDATE [IVP], Dose: 20 mg IVP, Site: #2 right wrist. Medication Ordered: Etomidate IV 20 mg (HIGH ALERT MEDICATION, NOW). Start 08:10/05/2016 Lisa Albert R.N. Medication Administered: LEVOPHED [IV DRIP] (NOREPINEPHRINE BITARTRATE), Dose: 1 mcg Drip IV, Rate: 1 mcg/min, Site: #1 left wrist. Medication Ordered: Levophed Drip IV : 0.5-12 mcg/min (NOW); Stat. Given 08:10/05/2016 Lisa Albert R.N. Medication Administered: ANECTINE [IVP], Dose: 70 mg IVP, Site: #2 right wrist. Medication Ordered: Anectine IV 1 mg/kg (HIGH ALERT MEDICATION, NOW). Start 08:10/05/2016 Lisa Albert R.N. Medication Administered: LEVOPHED [IV DRIP] (NOREPINEPHRINE BITARTRATE), Dose: 2 mcg Drip IV, Rate: 2 mcg/min, Site: #1 left wrist. Medication Ordered: Levophed Drip IV : 0.5-12 mcg/min (NOW); Stat. Given 08:38 10/05/2016 Lisa Albert R.N. Medication Administered: ANECTINE [IVP], Dose: 70 mg IVP, Site: #2 right wrist. Medication Ordered: Anectine IV 70 mg (HIGH ALERT MEDICATION, NOW). Start 08:39 10/05/2016 Lisa Albert R.N. Medication Administered: LEVOPHED [IV DRIP] (NOREPINEPHRINE BITARTRATE), Dose: 3 mcg Drip IV, Rate: 3 mcg/min, Site: #1 left wrist. Medication Ordered: Levophed Drip IV : 0.5-12 mcg/min (NOW); Stat. Start 08:40 10/05/2016 Lisa Albert R.N. Medication Administered: LEVOPHED [IV DRIP] (NOREPINEPHRINE BITARTRATE), Dose: 5 mcg Drip IV, Rate: 5 mcg/min, Site: #1 left wrist. Medication Ordered: Levophed Drip IV : 0.5-12 mcg/min (NOW); Stat. Start 08:45 10/05/2016 Lisa Albert R.N. Medication Administered: LEVOPHED [IV DRIP] (NOREPINEPHRINE BITARTRATE), Dose: 7 mcg Drip IV, Rate: 7 mcg/min, Site: #1 left wrist. Medication Ordered: Levophed Drip IV : 0.5-12 mcg/min (NOW); Stat. Given 08:49 10/05/2016 Lisa Albert R.N. Medication Administered: ETOMIDATE [IVP], Dose: 3 mg IVP, Site: #2 right wrist. Medication Ordered: Etomidate IV 3 mg (HIGH ALERT MEDICATION, NOW). Given 08:52 10/05/2016 Lisa Albert R.N. Medication Administered: ANECTINE [IVP], Dose: 70 mg IVP, Site: #2 right wrist. Medication Ordered: Anectine IV 70 mg (HIGH ALERT MEDICATION, NOW). Start 08:54 10/05/2016 Lisa Albert R.N. Medication Administered: LEVOPHED [IV DRIP] (NOREPINEPHRINE BITARTRATE), Dose: 8 mcg Drip IV, Rate: 8 mcg/min, Site: #1 left wrist. Medication Ordered: Levophed Drip IV : 0.5-12 mcg/min (NOW); Stat. Start 09:02 10/05/2016 Lisa Albert R.N. Medication Administered: PROPOFOL [IV DRIP], Dose: 20 mg Drip IV, Rate: 30 mcg/kg/min, Site: #3 left wrist. Medication Ordered: Propofol Drip IV : initial bolus none, then 30 mg/kg/min (NOW, TITRATE); Damián. Start 09:06 10/05/2016 Lisa Albert R.N., Continued Upon Disposition 10:11 10/05/2016 Lisa Albert R.N. Medication Administered: LEVOPHED [IV DRIP] (NOREPINEPHRINE BITARTRATE), Dose: 10 mcg Drip IV, Rate: 10 mcg/min, Site: #1 left wrist. Medication Ordered: Levophed Drip IV : 0.5-12 mcg/min (NOW); Stat. Given 09:26 10/05/2016 Lisa Albert R.N. Medication Administered: VASOPRESSIN [IVP], Dose: 0.03 unit IVP over 1 minute(s), Site: #3 left wrist. Medication Ordered: Vasopressin IV 0.03 units/kg (HIGH ALERT MEDICATION, NOW). Start 09:46 10/05/2016 Lisa Albert R.N. Medication Administered: PROPOFOL [IV DRIP], Dose: 20 mg Drip IV, Rate: 20 mcg/kg/min, Site: #3 left wrist. Medication Ordered: Propofol Drip IV : initial bolus none, then 30 mg/kg/min (NOW, TITRATE); Damián.
--- NOTE | 2016-10-05 11:35 | ED MAR SUMMARY ---
..... Medication Administration Record [facility] [address] [address] Patient: JOEY MIRELES Visit ID: [id number] 76y, F Weight: 67.0 kg Height/Length: 62 in BMI: 27 ALLERGIES: Vicodin Given 07:25 10/05/2016 Lisa Albert R.N. Medication Administered: LASIX [IVP], Dose: 40 mg IVP, Site: #1 left AC. Medication Ordered: Lasix IV 40 mg (NOW). Start 08:10/05/2016 Lisa Albert R.N. Medication Administered: LEVOPHED [IV DRIP] (NOREPINEPHRINE BITARTRATE), Dose: 0.5 mcg Drip IV, Rate: 0.5 mcg/min, Site: #1 left wrist. Medication Ordered: Levophed Drip IV : 0.5-12 mcg/min (NOW); Stat. Given 08:10/05/2016 Lisa Albert R.N. Medication Administered: ETOMIDATE [IVP], Dose: 20 mg IVP, Site: #2 right wrist. Medication Ordered: Etomidate IV 20 mg (HIGH ALERT MEDICATION, NOW). Start 08:10/05/2016 Lisa Albert R.N. Medication Administered: LEVOPHED [IV DRIP] (NOREPINEPHRINE BITARTRATE), Dose: 1 mcg Drip IV, Rate: 1 mcg/min, Site: #1 left wrist. Medication Ordered: Levophed Drip IV : 0.5-12 mcg/min (NOW); Stat. Given 08:10/05/2016 Lisa Albert R.N. Medication Administered: ANECTINE [IVP], Dose: 70 mg IVP, Site: #2 right wrist. Medication Ordered: Anectine IV 1 mg/kg (HIGH ALERT MEDICATION, NOW). Start 08:10/05/2016 Lisa Albert R.N. Medication Administered: LEVOPHED [IV DRIP] (NOREPINEPHRINE BITARTRATE), Dose: 2 mcg Drip IV, Rate: 2 mcg/min, Site: #1 left wrist. Medication Ordered: Levophed Drip IV : 0.5-12 mcg/min (NOW); Stat. Given 08:38 10/05/2016 Lisa Albert R.N. Medication Administered: ANECTINE [IVP], Dose: 70 mg IVP, Site: #2 right wrist. Medication Ordered: Anectine IV 70 mg (HIGH ALERT MEDICATION, NOW). Start 08:39 10/05/2016 Lisa Albert R.N. Medication Administered: LEVOPHED [IV DRIP] (NOREPINEPHRINE BITARTRATE), Dose: 3 mcg Drip IV, Rate: 3 mcg/min, Site: #1 left wrist. Medication Ordered: Levophed Drip IV : 0.5-12 mcg/min (NOW); Stat. Start 08:40 10/05/2016 Lisa Albert R.N. Medication Administered: LEVOPHED [IV DRIP] (NOREPINEPHRINE BITARTRATE), Dose: 5 mcg Drip IV, Rate: 5 mcg/min, Site: #1 left wrist. Medication Ordered: Levophed Drip IV : 0.5-12 mcg/min (NOW); Stat. Start 08:45 10/05/2016 Lisa Albert R.N. Medication Administered: LEVOPHED [IV DRIP] (NOREPINEPHRINE BITARTRATE), Dose: 7 mcg Drip IV, Rate: 7 mcg/min, Site: #1 left wrist. Medication Ordered: Levophed Drip IV : 0.5-12 mcg/min (NOW); Stat. Given 08:49 10/05/2016 Lisa Albert R.N. Medication Administered: ETOMIDATE [IVP], Dose: 3 mg IVP, Site: #2 right wrist. Medication Ordered: Etomidate IV 3 mg (HIGH ALERT MEDICATION, NOW). Given 08:52 10/05/2016 Lisa Albert R.N. Medication Administered: ANECTINE [IVP], Dose: 70 mg IVP, Site: #2 right wrist. Medication Ordered: Anectine IV 70 mg (HIGH ALERT MEDICATION, NOW). Start 08:54 10/05/2016 Lisa Albert R.N. Medication Administered: LEVOPHED [IV DRIP] (NOREPINEPHRINE BITARTRATE), Dose: 8 mcg Drip IV, Rate: 8 mcg/min, Site: #1 left wrist. Medication Ordered: Levophed Drip IV : 0.5-12 mcg/min (NOW); Stat. Start 09:02 10/05/2016 Lisa Albert R.N. Medication Administered: PROPOFOL [IV DRIP], Dose: 20 mg Drip IV, Rate: 30 mcg/kg/min, Site: #3 left wrist. Medication Ordered: Propofol Drip IV : initial bolus none, then 30 mg/kg/min (NOW, TITRATE); Damián. Start 09:06 10/05/2016 Lisa Albert R.N., Continued Upon Disposition 10:11 10/05/2016 Lisa Albert R.N. Medication Administered: LEVOPHED [IV DRIP] (NOREPINEPHRINE BITARTRATE), Dose: 10 mcg Drip IV, Rate: 10 mcg/min, Site: #1 left wrist. Medication Ordered: Levophed Drip IV : 0.5-12 mcg/min (NOW); Stat. Given 09:26 10/05/2016 Lisa Albert R.N. Medication Administered: VASOPRESSIN [IVP], Dose: 0.03 unit IVP over 1 minute(s), Site: #3 left wrist. Medication Ordered: Vasopressin IV 0.03 units/kg (HIGH ALERT MEDICATION, NOW). Start 09:46 10/05/2016 Lisa Albert R.N. Medication Administered: PROPOFOL [IV DRIP], Dose: 20 mg Drip IV, Rate: 20 mcg/kg/min, Site: #3 left wrist. Medication Ordered: Propofol Drip IV : initial bolus none, then 30 mg/kg/min (NOW, TITRATE); Damián.
--- NOTE | 2016-10-05 11:35 | ED DISCHARGE INSTRUCTIONS ---
Patient: JOEY MIRELES General Instructions [facility] VisitID: [id number] [address] [place] [place] [address] 76y, F Registration Date/Time: 10/05/2016 Acute respiratory failure with hypoxemia and hypercapnia. Congestive heart failure. Hypotension. Renal insufficiency. (Electronically signed by Miky Calle MD 10/05/2016 11:11)
--- NOTE | 2016-10-05 11:36 | ED MED RECONCILIATION SUMMARY ---
Patient: JOEY MIRELES Medication Reconciliation Report [facility] VisitID: [id number] [place] [address] 76y, F Registration Date/Time: 10/05/2016 Weight: 67 kg Height/Length: 62 in. BMI: 27.0 ALLERGIES: Vicodin The patient's Home Medications are listed below: THE FOLLOWING MEDICATIONS NEED TO BE RECONCILED: ALPRAZolam Oral Amiodarone HCL Oral B-12 Oral Condroitin Furosemide Oral Glucosamine Oral Iron Oral Levothyroxine Sodium Oral Metoprolol Tartrate Oral Multivitamins Oral Ocuvite Oral Pantoprazole Sodium Oral Simvastatin Oral Vitamin c Oral Vitamin D Oral Warfarin Sodium Oral The source(s) of the original Home Medication information: Not obtained. The following Medications were given to the patient in the Emergency Department: Lasix [IVP] IVP 40 mg, administered: 10/05/2016 7:25:00 AM Levophed [IV DRIP] Drip IV bolus 0, then 0.5 mcg 0.5 mcg/min, administered: 10/05/2016 8:22:00 AM Levophed [IV DRIP] Drip IV bolus 0, then 1 mcg 1 mcg/min, administered: 10/05/2016 8:23:00 AM Levophed [IV DRIP] Drip IV bolus 0, then 3 mcg 3 mcg/min, administered: 10/05/2016 8:39:00 AM Levophed [IV DRIP] Drip IV bolus 0, then 5 mcg 5 mcg/min, administered: 10/05/2016 8:40:00 AM Levophed [IV DRIP] Drip IV bolus 0, then 7 mcg 7 mcg/min, administered: 10/05/2016 8:45:00 AM Levophed [IV DRIP] Drip IV bolus 0, then 2 mcg 2 mcg/min, administered: 10/05/2016 8:33:00 AM Levophed [IV DRIP] Drip IV bolus 0, then 8 mcg 8 mcg/min, administered: 10/05/2016 8:54:00 AM Levophed [IV DRIP] Drip IV bolus 0, then 10 mcg 10 mcg/min, administered: 10/05/2016 9:06:00 AM Anectine [IVP] IVP 70 mg, administered: 10/05/2016 8:38:00 AM Anectine [IVP] IVP 70 mg, administered: 10/05/2016 8:24:00 AM Anectine [IVP] IVP 70 mg, administered: 10/05/2016 8:52:00 AM Etomidate [IVP] IVP 20 mg, administered: 10/05/2016 8:22:00 AM Etomidate [IVP] IVP 3 mg, administered: 10/05/2016 8:49:00 AM Vasopressin [IVP] IVP 0.03 unit, administered: 10/05/2016 9:26:00 AM Propofol [IV Drip] Drip IV bolus 0, then 20 mg 30 mcg/kg/min, administered: 10/05/2016 9:02:00 AM Propofol [IV Drip] Drip IV bolus 0, then 20 mg 20 mcg/kg/min, administered: 10/05/2016 9:46:00 AM The following Medications were prescribed to the patient: None.
--- NOTE | 2016-10-05 11:36 | ED MED RECONCILIATION SUMMARY ---
Patient: JOEY MIRELES Medication Reconciliation Report [facility] VisitID: [id number] [place] [address] 76y, F Registration Date/Time: 10/05/2016 Weight: 67 kg Height/Length: 62 in. BMI: 27.0 ALLERGIES: Vicodin The patient's Home Medications are listed below: THE FOLLOWING MEDICATIONS NEED TO BE RECONCILED: ALPRAZolam Oral Amiodarone HCL Oral B-12 Oral Condroitin Furosemide Oral Glucosamine Oral Iron Oral Levothyroxine Sodium Oral Metoprolol Tartrate Oral Multivitamins Oral Ocuvite Oral Pantoprazole Sodium Oral Simvastatin Oral Vitamin c Oral Vitamin D Oral Warfarin Sodium Oral The source(s) of the original Home Medication information: Not obtained. The following Medications were given to the patient in the Emergency Department: Lasix [IVP] IVP 40 mg, administered: 10/05/2016 7:25:00 AM Levophed [IV DRIP] Drip IV bolus 0, then 0.5 mcg 0.5 mcg/min, administered: 10/05/2016 8:22:00 AM Levophed [IV DRIP] Drip IV bolus 0, then 1 mcg 1 mcg/min, administered: 10/05/2016 8:23:00 AM Levophed [IV DRIP] Drip IV bolus 0, then 3 mcg 3 mcg/min, administered: 10/05/2016 8:39:00 AM Levophed [IV DRIP] Drip IV bolus 0, then 5 mcg 5 mcg/min, administered: 10/05/2016 8:40:00 AM Levophed [IV DRIP] Drip IV bolus 0, then 7 mcg 7 mcg/min, administered: 10/05/2016 8:45:00 AM Levophed [IV DRIP] Drip IV bolus 0, then 2 mcg 2 mcg/min, administered: 10/05/2016 8:33:00 AM Levophed [IV DRIP] Drip IV bolus 0, then 8 mcg 8 mcg/min, administered: 10/05/2016 8:54:00 AM Levophed [IV DRIP] Drip IV bolus 0, then 10 mcg 10 mcg/min, administered: 10/05/2016 9:06:00 AM Anectine [IVP] IVP 70 mg, administered: 10/05/2016 8:38:00 AM Anectine [IVP] IVP 70 mg, administered: 10/05/2016 8:24:00 AM Anectine [IVP] IVP 70 mg, administered: 10/05/2016 8:52:00 AM Etomidate [IVP] IVP 20 mg, administered: 10/05/2016 8:22:00 AM Etomidate [IVP] IVP 3 mg, administered: 10/05/2016 8:49:00 AM Vasopressin [IVP] IVP 0.03 unit, administered: 10/05/2016 9:26:00 AM Propofol [IV Drip] Drip IV bolus 0, then 20 mg 30 mcg/kg/min, administered: 10/05/2016 9:02:00 AM Propofol [IV Drip] Drip IV bolus 0, then 20 mg 20 mcg/kg/min, administered: 10/05/2016 9:46:00 AM The following Medications were prescribed to the patient: None.
== END 2016-10-05 10:17 | disposition short-term general hospital (02) ==
LOC: ED SRH 06:54 → EDBD 06:58 → ED SRH 10:17
DX: J96.02 Acute respiratory failure with hypercapnia (principal); J96.01 Acute respiratory failure with hypoxia; I50.9 Heart failure, unspecified; I95.9 Hypotension, unspecified; N28.9 Disorder of kidney and ureter, unspecified; I48.91 Unspecified atrial fibrillation; Z79.01 Long term (current) use of anticoagulants; Z95.0 Presence of cardiac pacemaker; Z79.899 Other long term (current) drug therapy; Z87.891 Personal history of nicotine dependence; Z88.5 Allergy status to narcotic agent